=== PATIENT | male | born 1995 | race Caucasian/White ===

== ENCOUNTER 2021-04-16 10:51 | Emergency (ER) | payer OTHER ==
[~2021-04-16] VITALS: Ht 182.9 cm; Wt 93.4 kg
== END 2021-04-16 15:18 | disposition home or self-care (01) ==
LOC: ED 10:51
DX: R10.11 Right upper quadrant pain (principal); Z88.1 Allergy status to other antibiotic agents
CPT/HCPCS: 76705; 80053; 83690; 85025; 99284-25